=== PATIENT | female | born 1950 | race Caucasian/White ===

== ENCOUNTER 2024-03-19 12:25 | Emergency (ER) | payer MEDICARE, MEDICAID, SELFPAY ==
[2024-03-19] VITALS (16 sets, daily range): BP systolic 120–137; BP diastolic 59–88; PULSE 64–74; RESP 16–20; TEMP 36.7; O2SAT 88–97; BMI 35.9
--- NOTE | 2024-03-19 12:33 | ECG_ITS ---
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 Measurements Intervals [place] Rate: 63 P: 35 DC: 159 QRS: 28 QRSD: 94 T: 42 QT: 439 QTc: 451 Interpretive Statements SINUS RHYTHM No previous ECG available for comparison Electronically Signed On 03-19-2024 19:32:19 ACCOUNTS OFFICER by Asia Galloway M.D. [email or web address]
--- NOTE | 2024-03-19 12:33 | XR_ITS ---
WS: [id number] Exam: XR chest 1V portable [id number] Date/Time of Exam: 03/19/2024 12:40 PM Reason For Exam: Psych workup No priors. Lungs are fully inflated and clear. Normal cardiomediastinal silhouette. No pleural effusions. 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 XR/XR chest 1V portable [id number] IMPRESSION: 1. No acute process identified.
--- NOTE | 2024-03-19 12:37 | ED.C_ITS ---
HPI - Psych 2 General: Chief Complaint: Psychiatric Symptoms Stated Complaint: behav. Time Seen by Provider: 03/19/24 12:27 History of Present Illness: 73-year-old female who [facility] They state over the last couple of months she has had some episodes where she is touch staff inappropriately. She denies this. She does not have any reports of dementia and is awake alert and oriented. She says she did not do this. She has no physical complaints at this time. No cough. No shortness of breath. No chest pain. No abdominal pain. No nausea or vomiting. Related Data Home Medications Medication Instructions Recorded Confirmed Lactobacillus acidophilus 100 mg PO BID 03/19/24 03/19/24 (Acidophilus capsule) acetaminophen 325 mg tablet 325 mg PO QID 03/19/24 03/19/24 (Tylenol) aluminum-mag hydroxide-simethicone 20 ml PO 5XD PRN reflux 03/19/24 03/19/24 200 mg-200 mg-20 mg/5 mL oral susp (Maria Antonia-Lanta) aripiprazole 10 mg tablet 10 mg PO DAILY 03/19/24 03/19/24 artificial 1 drp ophthalmic (eye) Q12H PRN 03/19/24 03/19/24 tears(lkbhkos-cturwjfm-zdsjujv) Dry Eyes 0.1 %-0.3 %-0.2 % eye drops buspirone 5 mg tablet 5 mg PO DAILY 03/19/24 03/19/24 calcium carbonate (Tums) 400 mg PO BID PRN reflux 03/19/24 03/19/24 cholecalciferol (vitamin D3) 25 25 mcg PO DAILY 03/19/24 03/19/24 mcg (1,000 unit) tablet (Vitamin D3) cyanocobalamin (vitamin B-12) 500 500 mcg PO DAILY 03/19/24 03/19/24 mcg tablet ferrous sulfate 325 mg (65 mg 325 mg PO DAILY 03/19/24 03/19/24 iron) tablet magnesium hydroxide 400 mg/5 mL 15 ml PO DAILY PRN Constipation 03/19/24 03/19/24 oral suspension (Milk of Magnesia) medroxyprogesterone 5 mg tablet 5 mg PO BID 03/19/24 03/19/24 melatonin 3 mg tablet 3 mg PO BEDTIME sleep 03/19/24 03/19/24 ondansetron 4 mg disintegrating 4 mg PO Q6H PRN Nausea And Vomiting 03/19/24 03/19/24 tablet pantoprazole 20 mg tablet,delayed 20 mg PO DAILY 03/19/24 03/19/24 release quetiapine 25 mg tablet 12.5 mg PO BID 03/19/24 03/19/24 sertraline 100 mg tablet 200 mg PO BID 03/19/24 03/19/24 tramadol 50 mg tablet 50 mg PO QID PRN Pain 03/19/24 03/19/24 Previous Rx's Medication Instructions Recorded cefdinir 300 mg capsule 300 mg PO BID 7 days #14 caps 03/19/24 Allergies Allergy/AdvReac Type Severity Reaction Status Date / Time No Known Allergies Allergy Verified 03/19/24 12:35 Review of Systems 2 Narrative: Constitutional symptoms: Negative except as documented in HPI. Skin symptoms: Negative except as documented in HPI. Eye symptoms: Negative except as documented in HPI. ENMT symptoms: Negative except as documented in HPI. Respiratory symptoms: Negative except as documented in HPI. Cardiovascular symptoms: Negative except as documented in HPI. Gastrointestinal symptoms: Negative except as documented in HPI. Genitourinary symptoms: Negative except as documented in HPI. Musculoskeletal symptoms: Negative except as documented in HPI. Neurologic symptoms: Negative except as documented in HPI. Psychiatric symptoms: Negative except as documented in HPI. Endocrine symptoms: Negative except as documented in HPI. Physical Exam 2 Narrative: EXAM NARRATIVE: General: Alert, no acute distress. Skin: Warm, dry. Head: Normocephalic, atraumatic. Neck: Supple, trachea midline. Eye: Extraocular movements are intact. Ears, nose, mouth and throat: mucosa moist. Cardiovascular: Regular, Normal peripheral perfusion. Respiratory: Lungs are clear to auscultation, respirations are non-labored, breath sounds are equal, Symmetrical chest wall expansion. Gastrointestinal: Soft, Nontender, Non distended Musculoskeletal: Normal ROM, no deformity. Neurological: Alert and oriented, No focal neurological deficit observed. Psychiatric: Cooperative, appropriate mood & affect. Course 2 Vital Signs: Vital signs: Vital Signs Temperature 98.0 F 03/19/24 12:25 Pulse Rate 64 03/19/24 14:05 Respiratory Rate 18 03/19/24 14:05 Blood Pressure 120/73 03/19/24 14:05 Pulse Oximetry 97 03/19/24 14:05 Oxygen Delivery Me thod Room Air 03/19/24 12:25 MDM - Psych Medical Decision Making Medical decision making: Differential diagnosis for a geriatric patient with worsening behavioral problems including but not limited to and based on the above HPI, review of systems and physical exam: Concerns for infection such as UTI or pneumonia. Alcohol intoxication. Cardiac issues or other medical problems to be ruled out prior to a geriatric/psychiatric admission Orders placed to evaluate differential diagnosis based on the above differential, HPI and physical exam Lab work, chest X-ray and ekg ordered to evaluate the pathologies and to clear the patient medically prior EKG: Time 12:56 PM. Rate 63. Rate normal sinus rhythm, No ST-T changes, no ectopy, normal [place] & QRS intervals, This was reviewed and interpreted by myself the ER physician at 1:01 PM Chest x-ray: No acute process. No infiltrate. No pneumothorax. This was reviewed and interpreted by myself the emergency room physician. I also reviewed the radiology report. Lab Review: Laboratory results were reviewed and interpreted by myself the emergency room physician. Lab review: - EKG shows no ischemic changes. - Blood alcohol level is negative, as well as salicylate and Tylenol. - Drug screen is negative -Patient has a fairly significant leukocytosis as well as some mild renal insufficiency which likely is chronic as she does not have other electrolyte abnormalities. - No anemia. Assessment and plan: Urinary tract infection Behavioral changes ?IV Rocephin in the emergency room. Home on antibiotics. Reevaluate by her primary after treatment of the urinary tract infection. Symptoms are relatively mild. Lab Data 03/19/24 13:02 03/19/24 13:02 Radiology Impressions Chest X-Ray 03/19/24 12:33 IMPRESSION: 1. No acute process identified. Laboratory Results WBC 9.95 10^3/uL (3.29-11.43) 03/19/24 13:02 RBC 4.77 10^6/uL (3.85-5.65) 03/19/24 13:02 Hgb 12.90 g/dL (11.27-16.99) 03/19/24 13:02 Hct 42.6 % (36-47) 03/19/24 13:02 MCV 89.3 fl (85-98) 03/19/24 13:02 MCH 27.0 pg (27-33) 03/19/24 13:02 MCHC 30.3 g/dL (30-55) 03/19/24 13:02 RDW 21.2 % (12.1-15.1) H 03/19/24 13:02 Plt Count 286 10^3/cmm (157-399) 03/19/24 13:02 MPV 10.1 fL (7.4-10.4) 03/19/24 13:02 Neut % (Auto) 59.3 % 03/19/24 13:02 Lymph % (Auto) 28.8 % 03/19/24 13:02 [place] % (Auto) 6.2 % 03/19/24 13:02 Eos % (Auto) 3.9 % 03/19/24 13:02 Baso % (Auto) 1.4 % 03/19/24 13:02 Neut # (Auto) 5.89 10^3/uL (1.8-7.7) 03/19/24 13:02 Lymph # (Auto) 2.9 10^3/uL (0.8-4.8) 03/19/24 13:02 [place] # (Auto) 0.6 10^3/uL (0.2-0.9) 03/19/24 13:02 Eos # (Auto) 0.4 10^3/uL (0.0-0.8) 03/19/24 13:02 Baso # (Auto) 0.1 10^3/uL (0.0-0.1) 03/19/24 13:02 Nucleated RBC % (auto) 0 % 03/19/24 13:02 Nucleated RBCs # 0.0 /100WBC 03/19/24 13:02 Sodium 143 mmol/L (136-145) 03/19/24 13:02 Potassium 4.2 mmol/L (3.5-5.1) 03/19/24 13:02 Chloride 108 mmol/L (98-107) H 03/19/24 13:02 Carbon Dioxide 25 mmol/L (22-29) 03/19/24 13:02 Anion Gap 14.2 (5-19) 03/19/24 13:02 BUN 23 mg/dL (8-23) 03/19/24 13:02 Creatinine 1.5 mg/dL (0.5-0.9) H 03/19/24 13:02 GFR Calculation Not Reportable 03/19/24 13:02 Glucose 81 mg/dL (65-115) 03/19/24 13:02 Calculated Osmolality 299 mOsm/kg (285-295) H 03/19/24 13:02 Calcium 9.1 mg/dL (8.5-10.5) 03/19/24 13:02 Total Bilirubin 0.2 mg/dL (0.15-1.2) 03/19/24 13:02 AST 12 U/L (0-32) 03/19/24 13:02 ALT < 5 U/L (0-33) 03/19/24 13:02 Alkaline Phosphatase 82 U/L (35-105) 03/19/24 13:02 Total Protein 7.1 g/dL (6.6-8.7) 03/19/24 13:02 Albumin 3.9 g/dL (3.5-5.2) 03/19/24 13:02 Globulin 3.2 g/dL (1.3-4.6) 03/19/24 13:02 TSH 0.78 uIU/mL (0.27-4.20) 03/19/24 13:02 Urine Color Yellow (Yellow) 03/19/24 14:13 Urine Appearance Cloudy (CLEAR) A 03/19/24 14:13 Urine pH 5.5 (5-7) 03/19/24 14:13 Ur Specific [place] 1.021 (1.005-1.030) 03/19/24 14:13 Urine Protein 1+ (Negative) A 03/19/24 14:13 Urine Glucose (UA) Negative (Normal) 03/19/24 14:13 Urine Ketones Negative (Negative) 03/19/24 14:13 Urine Blood 3+ (Negative) A 03/19/24 14:13 Urine Nitrate Negative (Negative) 03/19/24 14:13 Urine Bilirubin Negative (Negative) 03/19/24 14:13 Urine Urobilinogen 1.0 mg/dL (Negative) 03/19/24 14:13 Ur Leukocyte Esterase 3+ (Negative) A 03/19/24 14:13 Urine RBC 51-100 /hpf (0-2) H 03/19/24 14:13 Urine WBC >100 /hpf (0-5) H 03/19/24 14:13 Ur Squamous Epith Cells 6-10 /hpf (0-5) 03/19/24 14:13 Amorphous Sediment Not Reportable 03/19/24 14:13 Urine Bacteria 1+ /hpf (NONE) H 03/19/24 14:13 Hyaline Casts 0.81 /lpf 03/19/24 14:13 Salicylates < 0.3 mg/dL (3-10) L 03/19/24 13:02 Urine Opiates Screen Negative ng/mL (Negative) 03/19/24 14:13 Acetaminophen < 5.0 ug/mL (10-30) L 03/19/24 13:02 Ur Barbiturates Screen Negative ng/mL (Negative) 03/19/24 14:13 Ur Phencyclidine Scrn Negative ng/mL (Negative) 03/19/24 14:13 Ur Amphetamines Screen Negative ng/mL (Negative) 03/19/24 14:13 U Benzodiazepines Scrn Negative ng/mL (Negative) 03/19/24 14:13 Urine Cocaine Screen Negative ng/mL (Negative) 03/19/24 14:13 U Marijuana (THC) Screen Negative ng/mL (Negative) 03/19/24 14:13 Ethyl Alcohol < 10 mg/dL (0-10) 03/19/24 13:02 Coronavirus (PCR) Negative (Negative) 03/19/24 13:05 Influenza A (PCR) Negative (Negative) 03/19/24 13:05 Influenza Type B (PCR) Negative (Negative) 03/19/24 13:05 RSV (PCR) Negative (Negative) 03/19/24 13:05 All radiology interpretation(s) finalized by discharge Discharge Plan Discharge Patient Disposition: Home Clinical Impression: Urinary tract infection, Behavioral change Condition: Stable Prescriptions: New cefdinir 300 mg capsule 300 mg PO BID 7 Days Qty: 14 0RF No Action buspirone 5 mg tablet 5 mg PO DAILY acetaminophen [Tylenol] 325 mg Tablet 325 mg PO QID medroxyprogesterone 5 mg tablet 5 mg PO BID sertraline 100 mg tablet 200 mg PO BID tramadol 50 mg tablet 50 mg PO QID PRN (Reason: Pain) pantoprazole 20 mg tablet,delayed release (DR/EC) 20 mg PO DAILY ondansetron 4 mg tablet,disintegrating 4 mg PO Q6H PRN (Reason: Nausea And Vomiting) aripiprazole 10 mg tablet 10 mg PO DAILY quetiapine 25 mg tablet 12.5 mg PO BID melatonin 3 mg Tablet 3 mg PO BEDTIME magnesium hydroxide [Milk of Magnesia] 400 mg/5 mL Suspension 15 ml PO DAILY PRN (Reason: Constipation) cyanocobalamin (vitamin B-12) 500 mcg Tablet 500 mcg PO DAILY ferrous sulfate 325 mg (65 mg iron) Tablet 325 mg PO DAILY calcium carbonate [Tums] 200 mg calcium (500 mg) Tablet,Chewable 400 mg PO BID PRN (Reason: reflux) alum-mag hydroxide-simeth [Maria Antonia-Lanta] 200-200-20 mg/5 mL Suspension 20 ml PO 5XD PRN (Reason: reflux) Rx Instructions: administer between meals and at bedtime Acidophilus Capsule 100 mg PO BID artificial tear(tsuks-qsy-mem) 0.1-0.3-0.2 % Drops 1 drp OPHTHALMIC (EYE) Q12H PRN (Reason: Dry Eyes) cholecalciferol (vitamin D3) [Vitamin D3] 25 mcg (1,000 unit) Tablet 25 mcg PO DAILY Discharge Orders: Discharge ED (Routine); Ordered 03/19/24 Ordered By: Genny Noble Discharge Diet: Usual diet Discharge Activity: Increase activity as tolerated Patient Instructions: Opioid Safety, Pain Management Activity Restrictions/Additional Instructions: If behavioral symptoms do not improve with treatment of urinary tract infection then it may be necessary to seek psychiatric help at that time. Thank you for choosing [facility] for your healthcare needs today. Please realize this is an emergency room and that we are providing you with a medical screening exam and this may not be complete and all inclusive of all the testing and or work up that you may need to determine your ailment or severity of your illness. You have been screened and evaluated and felt safe for discharge. Health conditions do change or evolve sometimes and as such it is important that you follow up with your Primary Doctor to be re checked, 3-5 days is a general good time frame for follow up. You are always welcome to return to the ED for re assessment if your symptoms are worsening or you have new concerns Coding Level of Care Code ED Keno Clerk for Gissell Thompson
[2024-03-19 13:20] LABS: Basophils # 0.1 10^3/uL (0.0-0.1); Basophils % 1.4 %; Eosinophils # 0.4 10^3/uL (0.0-0.8); Eosinophils % 3.9 %; Hematocrit 42.6 % (36-47); Lymphocytes # 2.9 10^3/uL (0.8-4.8); Lymphocytes % 28.8 %; Mean Corpuscular HGB Conc 30.3 g/dL (30-55); Mean Corpuscular Volume 89.3 fl (85-98); Mean Platelet Volume 10.1 fL (7.4-10.4); Monocytes # 0.6 10^3/uL (0.2-0.9); Monocytes % 6.2 %; Neutrophils # 5.89 10^3/uL (1.8-7.7); Neutrophils % 59.3 %; Nucleated Red Blood Cells % 0 %; Platelet Count 286 10^3/cmm (157-399); Red Blood Count 4.77 10^6/uL (3.85-5.65); Red Cell Distribution Width 21.2 % (12.1-15.1); White Blood Count 9.95 10^3/uL (3.29-11.43)
[2024-03-19 13:42] LABS: Alanine Aminotransferase < 5 U/L (0-33); Albumin Level 3.9 g/dL (3.5-5.2); Alkaline Phosphatase 82 U/L (35-105); Anion Gap 14.2 (5-19); Aspartate Amino Transferase 12 U/L (0-32); Blood Urea Nitrogen 23 mg/dL (8-23); Calcium 9.1 mg/dL (8.5-10.5); Carbon Dioxide 25 mmol/L (22-29); Chloride 108 mmol/L (98-107); Creatinine Clr Calc Pharmacy 32.4774; Globulin 3.2 g/dL (1.3-4.6); Glucose 81 mg/dL (65-115); Osmolality Calculated 299 mOsm/kg (285-295); Potassium 4.2 mmol/L (3.5-5.1); Sodium 143 mmol/L (136-145); Thyroid Stimulating Hormone 0.78 uIU/mL (0.27-4.20); Total Bilirubin 0.2 mg/dL (0.15-1.2); Total Protein 7.1 g/dL (6.6-8.7)
[2024-03-19 13:45] LABS: Acetaminophen < 5.0 ug/mL (10-30); Alcohol Level < 10 mg/dL (0-10); Salicylate < 0.3 mg/dL (3-10)
[2024-03-19 13:59] LABS: Covid PCR NEGATIVE (Negative); Influenza A NEGATIVE (Negative); Influenza B NEGATIVE (Negative); Respiratory Syncytial Virus Ce NEGATIVE (Negative)
[2024-03-19 14:22] LABS: Bilirubin Urine Negative (Negative); Blood Urine 3+ (Negative); Glucose Urine UA Negative (Normal); Ketones Urine Negative (Negative); Leukocyte Esterase Urine 3+ (Negative); Nitrate Urine Negative (Negative); Protein Urine 1+ (Negative); Specific Gravity, Urine 1.021 (1.005-1.030); Urine Appearance Cloudy (CLEAR); Urine Color Yellow (Yellow); pH Urine 5.5 (5-7)
[2024-03-19 14:27] LABS: Bacteria Urine 1+ /hpf; Hyaline Casts Urine 0.81 /lpf; RBC Urine 51-100 /hpf (0-2); WBC Urine >100 /hpf (0-5)
[2024-03-19 14:31] LABS: Amphetamines Screen Urine Negative (Negative); Barbiturates Screen Urine Negative (Negative); Benzodiazepines Screen Urine Negative (Negative); Cocaine Screen Urine Negative (Negative); Opiate Screen Urine Negative (Negative); PCP Screen Urine Negative (Negative); THC Screen Urine Negative (Negative)
[2024-03-19 14:32] LABS: Add Urine Culture? Yes
[2024-03-19] MEDS: cefTRIAXone 1,000 mg SDV 1000 MG IVP (14:54)
== END 2024-03-19 17:28 | disposition home or self-care (01) ==
PROVIDERS: Emergency Provider Emergency Medicine
DX: N39.0 Urinary tract infection, site not specified (principal); Z11.52 Encounter for screening for COVID-19; R46.89 Other symptoms and signs involving appearance and behavior
CPT/HCPCS: 0241U; 71045; 80053; 80306; 80307; 81001; 84443; 85025; 87077; 87086; 87186; 93005; 96374; 99285; J0696

== ENCOUNTER 2024-04-01 21:18 | Emergency (ER) | payer MEDICARE, MEDICAID, SELFPAY ==
[2024-04-01 21:21] VITALS: BP 83/55; PULSE 95; TEMP 37.2; O2SAT 93; BMI 35.9
--- NOTE | 2024-04-01 21:26 | XRR_ITS ---
PROCEDURE INFORMATION: Exam: XR Chest Exam date and time: 04/01/2024 9:31 PM Age: 73 years old Clinical indication: Other: Altered mental status TECHNIQUE: Imaging protocol: Radiologic exam of the chest. Views: 1 view. COMPARISON: CR XR chest 1V portable [id number] 03/19/2024 12:44 PM FINDINGS: Lungs: Mild streaky left infrahilar opacities. No airspace consolidation. Pleural spaces: Unremarkable. No pleural effusion. No pneumothorax. Heart/Mediastinum: Unremarkable. No cardiomegaly. Bones/joints: Degenerative changes of the right glenohumeral joint. XR/XR chest 1V portable [id number] IMPRESSION: Left infrahilar streaky opacities may reflect atelectasis versus infiltrate.
--- NOTE | 2024-04-01 21:29 | ED_ITS ---
HPI - Altered Mental Status 2 General: Chief Complaint: Altered Mental Status Stated Complaint: Possible UTI Time Seen by Provider: 04/01/24 21:20 History of Present Illness: 73-year-old female with a history of w[place] quent urinary tract infection. She presents with a complaint of erratic behavior. According to longterm staff, she had walked into another resident's room, and had been touching herself and appropriately after pulling her pants down. The patient admits to doing this. She says she is not hurting anywhere currently, but does have some dysuria symptoms. Blood pressure is mildly low on arrival. Related Data Home Medications Medication Instructions Recorded Confirmed Lactobacillus acidophilus 100 mg PO BID 03/19/24 03/19/24 (Acidophilus capsule) acetaminophen 325 mg tablet 325 mg PO QID 03/19/24 03/19/24 (Tylenol) aluminum-mag hydroxide-simethicone 20 ml PO 5XD PRN reflux 03/19/24 03/19/24 200 mg-200 mg-20 mg/5 mL oral susp (Maria Antonia-Lanta) aripiprazole 10 mg tablet 10 mg PO DAILY 03/19/24 03/19/24 artificial 1 drp ophthalmic (eye) Q12H PRN 03/19/24 03/19/24 tears(woybifu-uworthhr-dblytbp) Dry Eyes 0.1 %-0.3 %-0.2 % eye drops buspirone 5 mg tablet 5 mg PO DAILY 03/19/24 03/19/24 calcium carbonate (Tums) 400 mg PO BID PRN reflux 03/19/24 03/19/24 cholecalciferol (vitamin D3) 25 25 mcg PO DAILY 03/19/24 03/19/24 mcg (1,000 unit) tablet (Vitamin D3) cyanocobalamin (vitamin B-12) 500 500 mcg PO DAILY 03/19/24 03/19/24 mcg tablet ferrous sulfate 325 mg (65 mg 325 mg PO DAILY 03/19/24 03/19/24 iron) tablet magnesium hydroxide 400 mg/5 mL 15 ml PO DAILY PRN Constipation 03/19/24 03/19/24 oral suspension (Milk of Magnesia) medroxyprogesterone 5 mg tablet 5 mg PO BID 03/19/24 03/19/24 melatonin 3 mg tablet 3 mg PO BEDTIME sleep 03/19/24 03/19/24 ondansetron 4 mg disintegrating 4 mg PO Q6H PRN Nausea And Vomiting 03/19/24 03/19/24 tablet pantoprazole 20 mg tablet,delayed 20 mg PO DAILY 03/19/24 03/19/24 release quetiapine 25 mg tablet 12.5 mg PO BID 03/19/24 03/19/24 sertraline 100 mg tablet 200 mg PO BID 03/19/24 03/19/24 tramadol 50 mg tablet 50 mg PO QID PRN Pain 03/19/24 03/19/24 Previous Rx's Medication Instructions Recorded cefdinir 300 mg capsule 300 mg PO BID 10 days #20 caps 04/02/24 Allergies Allergy/AdvReac Type Severity Reaction Status Date / Time No Known Allergies Allergy Verified 04/01/24 21:29 Physical Exam 2 Const: COMMON NORMALS: no acute distress GENERAL APPEARANCE: cooperative, comfortable and frail appearing (Mildly); not ill appearing HENMT: COMMON NORMALS: normocephalic HEAD & SCALP: normocephalic FACE & SINUS: normal facial exam Eye: COMMON NORMALS: Equal, round and reactive pupils present and EOMs intact bilaterally PUPIL: Yes Equal, round and reactive pupils present Neck/C-Spine: GENERAL: Yes trachea midline Chest: CHEST: Yes Symmetrical chest wall rise Resp: COMMON NORMALS: normal respiratory effort, No use of accessory muscles and clear to auscultation bilaterally AUSCULTATION: clear to auscultation bilaterally Cardio: COMMON NORMALS: regular rate and regular rhythm RATE: regular rate RHYTHM: regular rhythm GI: COMMON NORMALS: Normal to inspection, nondistended, normoactive bowel sounds present, Soft to palpation and non-tender PALPATION: Yes Soft to palpation : COMMON NORMALS: Yes no CVA tenderness BLADDER/KIDNEY EXAM: Yes no CVA tenderness Back/Pelvis: COMMON NORMALS: no CVA tenderness Extremity: COMMON NORMALS: capillary refill normal and no pedal edema Neuro: MIHAELA COMA SCALE: document GCS findings [place] coma scale eye opening: Spontaneous [place] coma scale verbal response: Orientated Mihaela coma scale motor response: Obey commands [place] coma scale total score: 15 Course 2 Vital Signs: Vital signs: Vital Signs Temperature 98.9 F 04/01/24 21:21 Pulse Rate 76 04/01/24 22:00 Respiratory Rate 16 04/01/24 22:00 Blood Pressure 110/48 04/01/24 22:00 Pulse Oximetry 93 04/01/24 22:00 Oxygen Delivery Me thod Room Air 04/01/24 22:00 MDM - Altered Mental Status Medical Decision Making 73-year-old female presenting with abnormal behavior, some hypersexuality in the longterm. She is calm and appropriate here. Her GCS is 15. Her vitals are stable. She is afebrile. She is breathing room air. Her CBC is normal. Chest x-ray shows left infrahilar streaky opacities that could be atelectasis versus infiltrate. Her urinalysis is significant for greater than 100 whites greater than 100 reds, and 4+ bacteria although it is contaminated with 21-50 squamous cells. She does have 2+ leukocyte esterase. Unclear whether UTI has any bearing on her aberrant behavior, but will treat. She was treated 2 weeks ago, course may have not been long enough. Will treat for 10 days. Bacteria cultured from urine was sensitive to Rocephin/cefdinir. Lab Data 04/01/24 21:50 04/01/24 21:50 Radiology Impressions Chest X-Ray 04/01/24 21:26 IMPRESSION: Left infrahilar streaky opacities may reflect atelectasis versus infiltrate. Abdomen/Pelvis CT 04/01/24 22:36 IMPRESSION: 1. Findings suggestive of acute cystitis. Correlate with physical exam findings and urinalysis. 2. Mild left perinephric fat stranding is nonspecific. Underlying pyelonephritis not entirely excluded, though considered less likely. 3. Right nephrectomy. 4. Additional ancillary findings as above. Laboratory Results WBC 11.06 10^3/uL (3.29-11.43) 04/01/24 21:50 RBC 4.59 10^6/uL (3.85-5.65) 04/01/24 21:50 Hgb 12.70 g/dL (11.27-16.99) 04/01/24 21:50 Hct 42.3 % (36-47) 04/01/24 21:50 MCV 92.2 fl (85-98) 04/01/24 21:50 MCH 27.7 pg (27-33) 04/01/24 21:50 MCHC 30.0 g/dL (30-55) 04/01/24 21:50 RDW 20.8 % (12.1-15.1) H 04/01/24 21:50 Plt Count 306 10^3/cmm (157-399) 04/01/24 21:50 MPV 10.5 fL (7.4-10.4) H 04/01/24 21:50 Neut % (Auto) 61.0 % 04/01/24 21:50 Lymph % (Auto) 28.3 % 04/01/24 21:50 [place] % (Auto) 5.1 % 04/01/24 21:50 Eos % (Auto) 4.2 % 04/01/24 21:50 Baso % (Auto) 1.1 % 04/01/24 21:50 Neut # (Auto) 6.76 10^3/uL (1.8-7.7) 04/01/24 21:50 Lymph # (Auto) 3.1 10^3/uL (0.8-4.8) 04/01/24 21:50 [place] # (Auto) 0.6 10^3/uL (0.2-0.9) 04/01/24 21:50 Eos # (Auto) 0.5 10^3/uL (0.0-0.8) 04/01/24 21:50 Baso # (Auto) 0.1 10^3/uL (0.0-0.1) 04/01/24 21:50 Nucleated RBC % (auto) 0 % 04/01/24 21:50 Nucleated RBCs # 0.0 /100WBC 04/01/24 21:50 Sodium 144 mmol/L (136-145) 04/01/24 21:50 Potassium 3.9 mmol/L (3.5-5.1) 04/01/24 21:50 Chloride 108 mmol/L (98-107) H 04/01/24 21:50 Carbon Dioxide 24 mmol/L (22-29) 04/01/24 21:50 Anion Gap 15.9 (5-19) 04/01/24 21:50 BUN 26 mg/dL (8-23) H 04/01/24 21:50 Creatinine 2.0 mg/dL (0.5-0.9) H 04/01/24 21:50 GFR Calculation Not Reportable 04/01/24 21:50 Glucose 115 mg/dL (65-115) 04/01/24 21:50 Calculated Osmolality 304 mOsm/kg (285-295) H 04/01/24 21:50 Calcium 8.2 mg/dL (8.5-10.5) L 04/01/24 21:50 Total Bilirubin 0.2 mg/dL (0.15-1.2) 04/01/24 21:50 AST 9 U/L (0-32) 04/01/24 21:50 ALT < 5 U/L (0-33) 04/01/24 21:50 Alkaline Phosphatase 76 U/L (35-105) 04/01/24 21:50 C-Reactive Protein 3.0 mg/L (0.0-4.9) 04/01/24 21:50 Total Protein 6.2 g/dL (6.6-8.7) L 04/01/24 21:50 Albumin 3.7 g/dL (3.5-5.2) 04/01/24 21:50 Globulin 2.5 g/dL (1.3-4.6) 04/01/24 21:50 Urine Color Dark yellow (Yellow) A 04/01/24 21:43 Urine Appearance Turbid (CLEAR) A 04/01/24 21:43 Urine pH 5.5 (5-7) 04/01/24 21:43 Ur Specific [place] 1.030 (1.005-1.030) 04/01/24 21:43 Urine Protein 2+ (Negative) A 04/01/24 21:43 Urine Glucose (UA) Negative (Normal) 04/01/24 21:43 Urine Ketones 1+ (Negative) H 04/01/24 21:43 Urine Blood 3+ (Negative) A 04/01/24 21:43 Urine Nitrate Negative (Negative) 04/01/24 21:43 Urine Bilirubin Negative (Negative) 04/01/24 21:43 Urine Urobilinogen 1.0 mg/dL (Negative) 04/01/24 21:43 Ur Leukocyte Esterase 2+ (Negative) A 04/01/24 21:43 Urine RBC >100 /hpf (0-2) H 04/01/24 21:43 Urine WBC >100 /hpf (0-5) H 04/01/24 21:43 Ur Squamous Epith Cells 21-50 /hpf (0-5) 04/01/24 21:43 Amorphous Sediment Not Reportable 04/01/24 21:43 Urine Bacteria 4+ /hpf (NONE) H 04/01/24 21:43 Hyaline Casts 37.23 /lpf 04/01/24 21:43 All radiology interpretation(s) finalized by discharge Discharge Plan Discharge Patient Disposition: Home Clinical Impression: Urinary tract infection, Altered mental status Condition: Stable Prescriptions: New cefdinir 300 mg capsule 300 mg PO BID 10 Days Qty: 20 0RF No Action buspirone 5 mg tablet 5 mg PO DAILY acetaminophen [Tylenol] 325 mg Tablet 325 mg PO QID medroxyprogesterone 5 mg tablet 5 mg PO BID sertraline 100 mg tablet 200 mg PO BID tramadol 50 mg tablet 50 mg PO QID PRN (Reason: Pain) pantoprazole 20 mg tablet,delayed release (DR/EC) 20 mg PO DAILY ondansetron 4 mg tablet,disintegrating 4 mg PO Q6H PRN (Reason: Nausea And Vomiting) aripiprazole 10 mg tablet 10 mg PO DAILY quetiapine 25 mg tablet 12.5 mg PO BID melatonin 3 mg Tablet 3 mg PO BEDTIME magnesium hydroxide [Milk of Magnesia] 400 mg/5 mL Suspension 15 ml PO DAILY PRN (Reason: Constipation) cyanocobalamin (vitamin B-12) 500 mcg Tablet 500 mcg PO DAILY ferrous sulfate 325 mg (65 mg iron) Tablet 325 mg PO DAILY calcium carbonate [Tums] 200 mg calcium (500 mg) Tablet,Chewable 400 mg PO BID PRN (Reason: reflux) alum-mag hydroxide-simeth [Maria Antonia-Lanta] 200-200-20 mg/5 mL Suspension 20 ml PO 5XD PRN (Reason: reflux) Rx Instructions: administer between meals and at bedtime Acidophilus Capsule 100 mg PO BID artificial tear(lqwis-cee-gql) 0.1-0.3-0.2 % Drops 1 drp OPHTHALMIC (EYE) Q12H PRN (Reason: Dry Eyes) cholecalciferol (vitamin D3) [Vitamin D3] 25 mcg (1,000 unit) Tablet 25 mcg PO DAILY Discharge Orders: Discharge ED (Routine); Ordered 04/02/24 Ordered By: Esa Cheng Patient Instructions: Altered Mental Status (ED), Urinary Tract Infection in Older Adults (ED), Opioid Safety, Pain Management Activity Restrictions/Additional Instructions: Antibiotics as directed. Stay hydrated. You should have a repeat urinalysis in 4 days or so to ensure you are clearing your infection. Return for fever despite 2-3 doses of antibiotics, vomiting liquids or medications, worsening mental status despite treatment, other concerning symptoms. Coding Level of Care Code ED Geodetic Advisor for Gissell Thompson
--- NOTE | 2024-04-01 21:30 | ECG_ITS ---
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 Measurements Intervals [place] Rate: 72 P: 30 NH: 158 QRS: 25 QRSD: 101 T: 51 QT: 419 QTc: 460 Interpretive Statements SINUS RHYTHM Compared to ECG 03/19/2024 12:56:06 No significant changes Electronically Signed On 04-03-2024 21:45:53 IMAGERY ANALYST by Bryant Munguia M.D. [id number]
[2024-04-01 21:49] LABS: Bilirubin Urine Negative (Negative); Blood Urine 3+ (Negative); Glucose Urine UA Negative (Normal); Ketones Urine 1+ (Negative); Leukocyte Esterase Urine 2+ (Negative); Nitrate Urine Negative (Negative); Protein Urine 2+ (Negative); Urine Appearance Turbid (CLEAR); Urine Color Dark Yellow (Yellow); pH Urine 5.5 (5-7)
[2024-04-01 21:51] LABS: Add Urine Microscopic? YES; Bacteria Urine 4+ /hpf; Hyaline Casts Urine 37.23 /lpf; RBC Urine >100 /hpf (0-2); Squamous Epithelial Cell Urine 21-50 /hpf (0-5); Universal Test for UA Present (0); WBC Urine >100 /hpf (0-5)
[2024-04-01 21:54] LABS: Add Urine Culture? No
[2024-04-01 21:55] LABS: Basophils # 0.1 10^3/uL (0.0-0.1); Basophils % 1.1 %; Eosinophils # 0.5 10^3/uL (0.0-0.8); Eosinophils % 4.2 %; Hematocrit 42.3 % (36-47); Lymphocytes # 3.1 10^3/uL (0.8-4.8); Lymphocytes % 28.3 %; Mean Corpuscular Hemoglobin 27.7 pg (27-33); Mean Corpuscular Volume 92.2 fl (85-98); Mean Platelet Volume 10.5 fL (7.4-10.4); Monocytes # 0.6 10^3/uL (0.2-0.9); Monocytes % 5.1 %; Neutrophils # 6.76 10^3/uL (1.8-7.7); Nucleated Red Blood Cells % 0 %; Platelet Count 306 10^3/cmm (157-399); Red Blood Count 4.59 10^6/uL (3.85-5.65); Red Cell Distribution Width 20.8 % (12.1-15.1); White Blood Count 11.06 10^3/uL (3.29-11.43)
[2024-04-01 22:00] VITALS: BP 110/48; PULSE 76; RESP 16; O2SAT 93
[2024-04-01 22:16] LABS: Alanine Aminotransferase < 5 U/L (0-33); Albumin Level 3.7 g/dL (3.5-5.2); Alkaline Phosphatase 76 U/L (35-105); Anion Gap 15.9 (5-19); Aspartate Amino Transferase 9 U/L (0-32); Blood Urea Nitrogen 26 mg/dL (8-23); Calcium 8.2 mg/dL (8.5-10.5); Carbon Dioxide 24 mmol/L (22-29); Chloride 108 mmol/L (98-107); Globulin 2.5 g/dL (1.3-4.6); Glucose 115 mg/dL (65-115); Osmolality Calculated 304 mOsm/kg (285-295); Potassium 3.9 mmol/L (3.5-5.1); Sodium 144 mmol/L (136-145); Total Bilirubin 0.2 mg/dL (0.15-1.2); Total Protein 6.2 g/dL (6.6-8.7)
--- NOTE | 2024-04-01 22:36 | CTR_ITS ---
PROCEDURE INFORMATION: Exam: CT Abdomen And Pelvis Without Contrast Exam date and time: 04/01/2024 10:55 PM Age: 73 years old Clinical indication: Abnormal findings; Abnormal lab test; Abnormal kidney function lab tests; Other: Uti/hematuria; Prior surgery; Surgery date: 6+ months; Surgery type: Nephrectomy; Patient HX: Hematuria with crystal and bacteriuria. ; Additional info: Hematuria, UTI, elevated creatinine TECHNIQUE: Imaging protocol: Computed tomography of the abdomen and pelvis without contrast. Radiation optimization: All CT scans at this facility use at least one of these dose optimization techniques: automated exposure control; mA and/or kV adjustment per patient size (includes targeted exams where dose is matched to clinical indication); or iterative reconstruction. COMPARISON: CR (CHEST, ) 04/01/2024 9:31 PM RADIATION DOSE METRICS: Total DLP (mGy-cm): 848.19 FINDINGS: Liver: Subcentimeter hypodensities in the liver are too small to characterize but may represent cysts. No suspicious liver lesion. Gallbladder and biliary ducts: The gallbladder is contracted. Pancreas: Normal. No ductal dilation. Spleen: Normal. No splenomegaly. Adrenal glands: Normal. No mass. Kidneys and ureters: Status post right nephrectomy. Mild left perinephric fat stranding is nonspecific. No left hydronephrosis. Stomach and bowel: Colonic diverticulosis without evidence of acute diverticulitis. No evidence of bowel obstruction. Appendix: No evidence of appendicitis. Intraperitoneal space: Unremarkable. No free air. No significant fluid collection. Vasculature: Moderate atherosclerotic aortoiliac calcifications. No aortic aneurysm. Lymph nodes: Unremarkable. No enlarged lymph nodes. Urinary bladder: The urinary bladder is decompressed which limits assessment. There appears to be mild bladder wall thickening as well as pericystic fat stranding. Reproductive: Unremarkable as visualized. Bones/joints: Moderate degenerative disc disease at multiple levels in the lumbar spine. No acute fracture. Left total hip arthroplasty appears intact within the field of view. Soft tissues: Unremarkable. CT/CT kidney stone [id number] IMPRESSION: 1. Findings suggestive of acute cystitis. Correlate with physical exam findings and urinalysis. 2. Mild left perinephric fat stranding is nonspecific. Underlying pyelonephritis not entirely excluded, though considered less likely. 3. Right nephrectomy. 4. Additional ancillary findings as above.
[2024-04-01] MEDS: cefTRIAXone 1,000 mg SDV 1000 MG IVP (23:38)
[2024-04-02 01:30] VITALS: PULSE 64; RESP 20; O2SAT 94
[2024-04-02] MEDS: OLANZapine 10 mg ODT 20 MG PO (02:24)
[2024-04-02] MEDS: acetaminophen 500 mg Tablet 1000 MG PO (04:34)
--- NOTE | 2024-04-02 08:52 | PC.PHAR ---
Pt is from [facility]
== END 2024-04-02 15:17 | disposition home or self-care (01) ==
PROVIDERS: Emergency Provider Emergency Medicine
DX: N39.0 Urinary tract infection, site not specified (principal); R41.82 Altered mental status, unspecified
CPT/HCPCS: 36415; 71045; 74176; 80053; 81001; 85025; 86140; 93005; 96374; 99285; J0696

== ENCOUNTER 2024-04-15 19:48 | Emergency (ER) | payer MEDICARE, MEDICAID, SELFPAY ==
[2024-04-15 19:49] VITALS: BP 114/75; PULSE 73; RESP 18; TEMP 36.9; O2SAT 95; BMI 35.9
--- NOTE | 2024-04-15 19:55 | XRR_ITS ---
PROCEDURE INFORMATION: Exam: XR Chest Exam date and time: 04/15/2024 8:04 PM Age: 73 years old Clinical indication: Other: Medical clearance evaluation; Additional info: Psychiatric work up TECHNIQUE: Imaging protocol: Radiologic exam of the chest. Views: 1 view. COMPARISON: CR (CHEST, ) 04/01/2024 9:31 PM FINDINGS: Lungs: Similar left lung base opacities. The remaining lungs are clear. Pleural spaces: Unremarkable. No pleural effusion. No pneumothorax. Heart/Mediastinum: Unremarkable. No cardiomegaly. Bones/joints: Unremarkable. XR/XR chest 1V portable [id number] IMPRESSION: As above.
--- NOTE | 2024-04-15 19:55 | ECG_ITS ---
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 Measurements Intervals [place] Rate: 76 P: 10 NV: 163 QRS: -6 QRSD: 90 T: 23 QT: 413 QTc: 464 Interpretive Statements SINUS RHYTHM LOW QRS VOLTAGE IN PRECORDIAL LEADS [QRS DEFLECTION < 1.0 mV IN CHEST LEADS] PATTERN CONSISTENT WITH PULMONARY DISEASE Compared to ECG 04/01/2024 21:30:53 Low QRS voltage now present Electronically Signed On 04-15-2024 22:36:49 CITY ADMINISTRATOR by Asia Galloway M.D. [id number]
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
[2024-04-15 21:27] LABS: Basophils # 0.1 10^3/uL (0.0-0.1); Basophils % 0.9 %; Eosinophils # 0.3 10^3/uL (0.0-0.8); Eosinophils % 2.4 %; Hematocrit 41.8 % (36-47); Lymphocytes # 2.6 10^3/uL (0.8-4.8); Lymphocytes % 22.6 %; Mean Corpuscular HGB Conc 30.1 g/dL (30-55); Mean Corpuscular Hemoglobin 27.9 pg (27-33); Mean Corpuscular Volume 92.5 fl (85-98); Mean Platelet Volume 10.7 fL (7.4-10.4); Monocytes # 0.6 10^3/uL (0.2-0.9); Monocytes % 5.4 %; Neutrophils # 7.93 10^3/uL (1.8-7.7); Neutrophils % 68.4 %; Nucleated Red Blood Cells % 0 %; Platelet Count 309 10^3/cmm (157-399); Red Blood Count 4.52 10^6/uL (3.85-5.65); Red Cell Distribution Width 18.7 % (12.1-15.1); White Blood Count 11.62 10^3/uL (3.29-11.43)
[2024-04-15 21:35] LABS: Alanine Aminotransferase 6 U/L (0-33); Albumin Level 3.8 g/dL (3.5-5.2); Alkaline Phosphatase 77 U/L (35-105); Anion Gap 13.1 (5-19); Aspartate Amino Transferase 10 U/L (0-32); Blood Urea Nitrogen 31 mg/dL (8-23); Calcium 8.7 mg/dL (8.5-10.5); Carbon Dioxide 24 mmol/L (22-29); Chloride 110 mmol/L (98-107); Creatinine Clr Calc Pharmacy 27.0645; Globulin 3.1 g/dL (1.3-4.6); Glucose 78 mg/dL (65-115); Osmolality Calculated 301 mOsm/kg (285-295); Potassium 4.1 mmol/L (3.5-5.1); Sodium 143 mmol/L (136-145); Thyroid Stimulating Hormone 1.43 uIU/mL (0.27-4.20); Total Bilirubin 0.2 mg/dL (0.15-1.2); Total Protein 6.9 g/dL (6.6-8.7)
[2024-04-15 21:40] LABS: Acetaminophen < 5.0 ug/mL (10-30); Alcohol Level < 10 mg/dL (0-10); Salicylate < 0.3 mg/dL (3-10)
[2024-04-15 23:06] LABS: Bilirubin Urine Negative (Negative); Blood Urine 2+ (Negative); Glucose Urine UA Negative (Normal); Ketones Urine Trace (Negative); Leukocyte Esterase Urine 2+ (Negative); Nitrate Urine Negative (Negative); Protein Urine 2+ (Negative); Specific Gravity, Urine 1.022 (1.005-1.030); Urine Appearance Turbid (CLEAR); Urine Color Yellow (Yellow); pH Urine 5.5 (5-7)
[2024-04-15 23:09] LABS: Bacteria Urine 4+ /hpf; Hyaline Casts Urine 4.95 /lpf; RBC Urine 21-50 /hpf (0-2); Squamous Epithelial Cell Urine 0-5 /hpf (0-5); Universal Test for UA Present (0); WBC Urine >100 /hpf (0-5)
[2024-04-15 23:14] LABS: Amphetamines Screen Urine Negative (Negative); Barbiturates Screen Urine Negative (Negative); Benzodiazepines Screen Urine Negative (Negative); Cocaine Screen Urine Negative (Negative); Opiate Screen Urine Negative (Negative); PCP Screen Urine Negative (Negative); THC Screen Urine Negative (Negative)
[2024-04-15 23:19] LABS: Covid PCR NEGATIVE (Negative); Influenza A NEGATIVE (Negative); Influenza B NEGATIVE (Negative); Respiratory Syncytial Virus Ce NEGATIVE (Negative)
[2024-04-15 23:29] LABS: Add Urine Culture? Yes; Oval Fat Bodies Urine 1+ /hpf
--- NOTE | 2024-04-16 00:38 | PC.NURSE ---
pt sitting in recliner quietly with psa.
--- NOTE | 2024-04-16 02:17 | PC.NURSE ---
report called to ASHLEY Garner at [facility]. OIL FIELD WORKER verbalized understanding of discharge instructions and accepting of discharge.
[2024-04-16 06:51] VITALS: BP 110/75; PULSE 68; RESP 18; O2SAT 93
--- NOTE | 2024-04-16 15:09 | PC.NURSE ---
Report called to Matilda at [facility] by Zakiya Goodwin RN. [place] stated they left heading our direction at approx 1400.
== END 2024-04-16 15:48 | disposition home or self-care (01) ==
PROVIDERS: Emergency Medicine; Emergency Provider Emergency Medicine
DX: F03.90 Unspecified dementia, unspecified severity, without behavioral disturbance, psychotic disturbance, mood disturbance, and anxiety (principal); Z11.52 Encounter for screening for COVID-19
CPT/HCPCS: 0241U; 36415; 71045; 80053; 80306; 80307; 81001; 84443; 85025; 87077; 87086; 87186; 93005; 99285